=== PATIENT | female | born 1935 | race Caucasian/White ===

== ENCOUNTER 2020-03-23 16:43 | Inpatient (IN) | payer OTHER, MEDICAID, SELFPAY ==
[~2020-03-23] VITALS: Ht 170.2 cm; Wt 88.9 kg
[~2020-03-23 16:43] MED LIST: ALENDRONATE SOD70 M2 PO; ATORVASTATIN CA40 M1 PO; BREO ELLIPTA1 PO1 IH; CLOPIDOGREL75 M1 PO; COZAAR50 MG PO; CYMBALTA60 M1 PO; METOPROLOL SUCC50 M2 PO; MONTELUKAST SOD10 M1 PO; NEU300 PO; NOR10T PO; NORTRIPTYLINE PO; OXYBUTYNIN CHLOR5 MG PO; PHOSLO667 MG PO; PROVENTIL0.09 MG/A1 INH; VITAMIN C250 MG PO; VITAMIN D32000 I2 PO
[2020-03-23 22:45] LABS: BASOPHIL % 0.1 % (0.2-1.3)
[2020-03-23 22:48] LABS: PLATELET COUNT 129 x10^3mcL (179-408); RED CELL DISTRIBUTION WIDTH 16.4 % (12.3-17.7)
[2020-03-23 23:01] LABS: T3 TOTAL 0.89 ng/mL
[2020-03-23 23:05] LABS: FREE THYROXINE INDEX 3.5 ug/dL (1.4-4.5); T4(THYROXINE) 8.9 ug/dL (4.7-13.3)
[2020-03-23 23:45] LABS: ALKALINE PHOSPHATASE 62 U/L (46-116); ALT/SGPT 21 U/L (14-59); AST/SGOT 27 U/L (15-37); BILIRUBIN TOTAL 0.86 mg/dL (0.20-1.00); CALCIUM 8.4 mg/dL (8.5-10.1); CARBON DIOXIDE 24.6 mmol/L (21-32); CHLORIDE SERUM 93 mmol/L (98-107); CREATININE SERUM 1.2 mg/dL (0.6-1.0); GLUCOSE SERUM 107 mg/dL (74-106); LACTIC DEHYDROGENASE (LDH) 270 U/L (100-190); POTASSIUM SERUM 5.5 mmol/L (3.5-5.1); TOTAL PROTEIN, SERUM 6.7 g/dL (6.4-8.2)
[2020-03-23 23:46] LABS: ALBUMIN 2.7 g/dL (3.4-5.0); C REACTIVE PROTEIN 18.6 mg/dL (<=0.9)
[2020-03-23 23:51] LABS: SODIUM SERUM 122 mmol/L (136-145)
[2020-03-23 23:52] LABS: FREE T4 0.8 ng/dL (0.76-1.46)
[2020-03-23] MEDS ORDERED: ELIQUIS5 MG PO (23:59)
[2020-03-24 07:18] LABS: CALCIUM 8.3 mg/dL (8.5-10.1); CARBON DIOXIDE 23.3 mmol/L (21-32); CHLORIDE SERUM 95 mmol/L (98-107); GLUCOSE SERUM 97 mg/dL (74-106); SODIUM SERUM 130 mmol/L (136-145)
[2020-03-24 07:43] VITALS: BP 132/58
[2020-03-24 07:56] LABS: BASOPHIL % 0.1 % (0.2-1.3)
[2020-03-24 08:08] LABS: PLATELET COUNT 123 x10^3mcL (179-408); RED CELL DISTRIBUTION WIDTH 15.6 % (12.3-17.7)
[2020-03-24 21:50] VITALS: BP 134/38
[2020-03-25 06:37] VITALS: BP 131/53
[2020-03-25 08:31] LABS: ALKALINE PHOSPHATASE 62 U/L (46-116); ALT/SGPT 25 U/L (14-59); AST/SGOT 36 U/L (15-37); BILIRUBIN TOTAL 1.22 mg/dL (0.20-1.00); CALCIUM 8.8 mg/dL (8.5-10.1); CARBON DIOXIDE 28.9 mmol/L (21-32); CHLORIDE SERUM 99 mmol/L (98-107); CREATININE SERUM 0.9 mg/dL (0.6-1.0); GLUCOSE SERUM 87 mg/dL (74-106); POTASSIUM SERUM 4.8 mmol/L (3.5-5.1); SODIUM SERUM 133 mmol/L (136-145); TOTAL PROTEIN, SERUM 6.5 g/dL (6.4-8.2)
[2020-03-25 08:57] LABS: ALBUMIN 2.4 g/dL (3.4-5.0)
[2020-03-25 09:23] VITALS: BP 107/44
[2020-03-25 10:44] LABS: BASOPHIL % 0.2 % (0.2-1.3)
[2020-03-25 11:02] VITALS: BP 150/54
[2020-03-25 12:31] LABS: PLATELET COUNT 126 x10^3mcL (179-408); RED CELL DISTRIBUTION WIDTH 16.2 % (12.3-17.7)
[2020-03-25 16:26] VITALS: BP 131/57
[2020-03-25 20:52] VITALS: BP 123/48
[2020-03-26 06:13] VITALS: BP 142/48
[2020-03-26 06:57] LABS: BASOPHIL % 0.2 % (0.2-1.3); PLATELET COUNT 140 x10^3mcL (179-408)
[2020-03-26 07:38] LABS: RED CELL DISTRIBUTION WIDTH 16.1 % (12.3-17.7)
[2020-03-26 07:47] LABS: ALKALINE PHOSPHATASE 59 U/L (46-116); ALT/SGPT 29 U/L (14-59); AST/SGOT 48 U/L (15-37); BILIRUBIN TOTAL 0.86 mg/dL (0.20-1.00); CALCIUM 8.5 mg/dL (8.5-10.1); CARBON DIOXIDE 24.4 mmol/L (21-32); CHLORIDE SERUM 99 mmol/L (98-107); GLUCOSE SERUM 86 mg/dL (74-106); SODIUM SERUM 131 mmol/L (136-145); TOTAL PROTEIN, SERUM 6.3 g/dL (6.4-8.2)
[2020-03-26 07:49] LABS: ALBUMIN 2.3 g/dL (3.4-5.0)
[2020-03-26 09:23] VITALS: BP 93/45
[2020-03-26 12:55] VITALS: BP 102/46
[2020-03-26 16:36] VITALS: BP 128/53
[2020-03-26 21:12] VITALS: BP 142/50
[2020-03-27 06:24] VITALS: BP 148/59
[2020-03-27 07:44] VITALS: BP 143/57
[2020-03-27 07:47] LABS: BASOPHIL % 0.2 % (0.2-1.3); PLATELET COUNT 163 x10^3mcL (179-408)
[2020-03-27 08:15] LABS: ALKALINE PHOSPHATASE 55 U/L (46-116); ALT/SGPT 33 U/L (14-59); AST/SGOT 37 U/L (15-37); BILIRUBIN TOTAL 0.77 mg/dL (0.20-1.00); CALCIUM 8.7 mg/dL (8.5-10.1); CARBON DIOXIDE 26.1 mmol/L (21-32); CHLORIDE SERUM 100 mmol/L (98-107); CREATININE SERUM 0.9 mg/dL (0.6-1.0); GLUCOSE SERUM 88 mg/dL (74-106); POTASSIUM SERUM 4.4 mmol/L (3.5-5.1); SODIUM SERUM 132 mmol/L (136-145); TOTAL PROTEIN, SERUM 6.3 g/dL (6.4-8.2)
[2020-03-27 08:17] LABS: ALBUMIN 2.2 g/dL (3.4-5.0)
[2020-03-27 08:21] LABS: RED CELL DISTRIBUTION WIDTH 15.9 % (12.3-17.7)
[2020-03-27 12:30] VITALS: BP 136/53
[2020-03-27 17:02] VITALS: BP 140/72
[2020-03-27 21:49] VITALS: BP 119/48
[2020-03-28 01:46] VITALS: Ht 170.2 cm; Wt 88.9 kg
[2020-03-28 05:46] VITALS: BP 120/56
[2020-03-28 07:39] LABS: BASOPHIL % 0.3 % (0.2-1.3); PLATELET COUNT 183 x10^3mcL (179-408)
[2020-03-28 08:08] LABS: ALKALINE PHOSPHATASE 56 U/L (46-116); ALT/SGPT 34 U/L (14-59); AST/SGOT 34 U/L (15-37); BILIRUBIN TOTAL 0.8 mg/dL (0.20-1.00); CARBON DIOXIDE 29.1 mmol/L (21-32); CHLORIDE SERUM 99 mmol/L (98-107); CREATININE SERUM 0.8 mg/dL (0.6-1.0); GLUCOSE SERUM 94 mg/dL (74-106); POTASSIUM SERUM 4.9 mmol/L (3.5-5.1); SODIUM SERUM 132 mmol/L (136-145)
[2020-03-28 08:31] LABS: ALBUMIN 2.2 g/dL (3.4-5.0)
[2020-03-28 08:56] LABS: RED CELL DISTRIBUTION WIDTH 15.4 % (12.3-17.7)
[2020-03-28 09:00] VITALS: BP 136/52
[2020-03-28 12:36] VITALS: BP 112/52
[2020-03-28 16:58] VITALS: BP 128/71
[2020-03-28 20:31] VITALS: BP 125/52
[2020-03-28 20:50] LABS: BASOPHIL % 0.2 % (0.2-1.3); PLATELET COUNT 197 x10^3mcL (179-408)
[2020-03-28 20:59] LABS: RED CELL DISTRIBUTION WIDTH 15.7 % (12.3-17.7)
[2020-03-28 21:08] LABS: CALCIUM 8.8 mg/dL (8.5-10.1); CHLORIDE SERUM 98 mmol/L (98-107); CREATININE SERUM 0.8 mg/dL (0.6-1.0); GLUCOSE SERUM 102 mg/dL (74-106); POTASSIUM SERUM 5.1 mmol/L (3.5-5.1); SODIUM SERUM 129 mmol/L (136-145)
[2020-03-29 05:03] VITALS: BP 125/68
[2020-03-29 07:58] LABS: BASOPHIL % 0.3 % (0.2-1.3); PLATELET COUNT 235 x10^3mcL (179-408)
[2020-03-29 08:04] LABS: RED CELL DISTRIBUTION WIDTH 15.6 % (12.3-17.7)
[2020-03-29 09:12] LABS: ALKALINE PHOSPHATASE 58 U/L (46-116); ALT/SGPT 31 U/L (14-59); AST/SGOT 29 U/L (15-37); BILIRUBIN TOTAL 1.07 mg/dL (0.20-1.00); CALCIUM 9.1 mg/dL (8.5-10.1); CHLORIDE SERUM 99 mmol/L (98-107); CREATININE SERUM 0.7 mg/dL (0.6-1.0); GLUCOSE SERUM 90 mg/dL (74-106); POTASSIUM SERUM 5.1 mmol/L (3.5-5.1); SODIUM SERUM 133 mmol/L (136-145); TOTAL PROTEIN, SERUM 6.3 g/dL (6.4-8.2)
[2020-03-29 09:32] VITALS: BP 130/60
[2020-03-29 09:32] LABS: ALBUMIN 2.2 g/dL (3.4-5.0)
[2020-03-29 13:13] VITALS: BP 123/50
[2020-03-29 17:35] VITALS: BP 139/67
[2020-03-29 20:31] VITALS: BP 124/67
[2020-03-30 00:09] LABS: UA SPECIFIC GRAVITY >=1.030 (1.005-1.035); microscopic required? YES; urine erythrocyte 3+ (NEGATIVE)
[2020-03-30 05:22] VITALS: BP 132/48
[2020-03-30 08:44] VITALS: BP 90/66
[2020-03-30 12:25] VITALS: BP 132/54
[2020-03-30 17:30] VITALS: BP 135/47
[2020-03-30 20:55] VITALS: BP 128/64
[2020-03-31 06:03] VITALS: BP 114/63
[2020-03-31 08:11] LABS: CARBON DIOXIDE 28.4 mmol/L (21-32); CHLORIDE SERUM 99 mmol/L (98-107); GLUCOSE SERUM 95 mg/dL (74-106); SODIUM SERUM 132 mmol/L (136-145)
[2020-03-31 09:07] VITALS: BP 151/58
[2020-03-31 09:19] LABS: POTASSIUM SERUM 5.6 mmol/L (3.5-5.1)
[2020-03-31 12:30] VITALS: BP 123/44
[2020-03-31 14:18] LABS: BASOPHIL % 0.7 % (0.2-1.3); PLATELET COUNT 370 x10^3mcL (179-408)
[2020-03-31 14:36] LABS: RED CELL DISTRIBUTION WIDTH 15.7 % (12.3-17.7)
[2020-03-31 16:01] VITALS: BP 104/30
[2020-03-31 19:00] VITALS: BP 116/44
[2020-04-01 00:45] VITALS: BP 108/39
[2020-04-01 05:13] VITALS: BP 153/49
[2020-04-01 09:00] VITALS: BP 109/67
[2020-04-01 13:04] VITALS: BP 103/78
[2020-04-01 15:28] LABS: CALCIUM 8.8 mg/dL (8.5-10.1); CARBON DIOXIDE 24.8 mmol/L (21-32); CHLORIDE SERUM 99 mmol/L (98-107); CREATININE SERUM 1.1 mg/dL (0.6-1.0); GLUCOSE SERUM 101 mg/dL (74-106); POTASSIUM SERUM 5.2 mmol/L (3.5-5.1); SODIUM SERUM 133 mmol/L (136-145)
[2020-04-01 17:43] VITALS: BP 123/62
[2020-04-01 19:24] LABS: BASOPHIL % 0.2 % (0.2-1.3); PLATELET COUNT 302 x10^3mcL (179-408)
[2020-04-01 19:26] LABS: RED CELL DISTRIBUTION WIDTH 16.3 % (12.3-17.7)
[2020-04-01 20:50] LABS: APPEARANCE FLUID HAZY; COLOR FLUID YELLOW; SOURCE FLUID THORACENTESIS
[2020-04-01 20:51] LABS: RBC FLUID 6594 /cumm; WBC FLUID 9 /cumm
[2020-04-01 22:34] VITALS: BP 112/67
[2020-04-02] VITALS (7 sets, daily range): BP systolic 112–143; BP diastolic 39–74
[2020-04-03 06:03] VITALS: BP 124/43
[2020-04-03 07:56] LABS: BASOPHIL % 0.4 % (0.2-1.3); PLATELET COUNT 321 x10^3mcL (179-408)
[2020-04-03 08:32] LABS: CALCIUM 8.9 mg/dL (8.5-10.1); CARBON DIOXIDE 27.9 mmol/L (21-32); CHLORIDE SERUM 102 mmol/L (98-107); CREATININE SERUM 1.6 mg/dL (0.6-1.0); GLUCOSE SERUM 82 mg/dL (74-106); SODIUM SERUM 136 mmol/L (136-145)
[2020-04-03 09:44] LABS: POTASSIUM SERUM 6.2 mmol/L (3.5-5.1)
[2020-04-03 09:50] LABS: RED CELL DISTRIBUTION WIDTH 15.7 % (12.3-17.7)
[2020-04-03 09:58] VITALS: BP 129/43
[2020-04-03 12:56] VITALS: BP 95/55
[2020-04-03 18:03] VITALS: BP 103/52
[2020-04-03 21:12] VITALS: BP 101/26
[2020-04-04 05:36] VITALS: BP 124/38
[2020-04-04 05:39] VITALS: BP 124/38
[2020-04-04 07:18] LABS: BASOPHIL % 0.2 % (0.2-1.3); PLATELET COUNT 377 x10^3mcL (179-408)
[2020-04-04 07:27] LABS: RED CELL DISTRIBUTION WIDTH 15.8 % (12.3-17.7)
[2020-04-04 07:52] LABS: CALCIUM 8.6 mg/dL (8.5-10.1); CARBON DIOXIDE 29.4 mmol/L (21-32); CHLORIDE SERUM 97 mmol/L (98-107); CREATININE SERUM 2.8 mg/dL (0.6-1.0); GLUCOSE SERUM 197 mg/dL (74-106); SODIUM SERUM 130 mmol/L (136-145)
[2020-04-04 08:05] LABS: POTASSIUM SERUM 7.2 mmol/L (3.5-5.1)
[2020-04-04 09:35] VITALS: BP 105/48
[2020-04-04 12:54] VITALS: BP 117/42
[2020-04-04 16:53] LABS: CALCIUM 7.5 mg/dL (8.5-10.1); CARBON DIOXIDE 26.2 mmol/L (21-32); CHLORIDE SERUM 104 mmol/L (98-107); CREATININE SERUM 2.9 mg/dL (0.6-1.0); SODIUM SERUM 136 mmol/L (136-145)
[2020-04-04 17:02] LABS: GLUCOSE SERUM 92 mg/dL (74-106)
[2020-04-04 17:17] VITALS: BP 106/36
[2020-04-04 21:25] VITALS: BP 111/37
[2020-04-04 21:29] LABS: CALCIUM 8.4 mg/dL (8.5-10.1); CARBON DIOXIDE 27.8 mmol/L (21-32); CHLORIDE SERUM 101 mmol/L (98-107); CREATININE SERUM 3.6 mg/dL (0.6-1.0); GLUCOSE SERUM 111 mg/dL (74-106); SODIUM SERUM 134 mmol/L (136-145)
[2020-04-05 06:01] VITALS: BP 115/36
[2020-04-05 09:05] LABS: BASOPHIL % 1.3 % (0.2-1.3)
[2020-04-05 09:07] VITALS: BP 119/46
[2020-04-05 10:02] LABS: CALCIUM 8.6 mg/dL (8.5-10.1); CARBON DIOXIDE 26.3 mmol/L (21-32); CHLORIDE SERUM 100 mmol/L (98-107); CREATININE SERUM 3.8 mg/dL (0.6-1.0); GLUCOSE SERUM 101 mg/dL (74-106); SODIUM SERUM 136 mmol/L (136-145)
[2020-04-05 10:05] LABS: POTASSIUM SERUM 6.3 mmol/L (3.5-5.1)
[2020-04-05 11:29] LABS: PLATELET COUNT 448 x10^3mcL (179-408); RED CELL DISTRIBUTION WIDTH 16.2 % (12.3-17.7)
[2020-04-05 13:15] LABS: CALCIUM 8.1 mg/dL (8.5-10.1); CARBON DIOXIDE 25.8 mmol/L (21-32); CHLORIDE SERUM 103 mmol/L (98-107); CREATININE SERUM 3.8 mg/dL (0.6-1.0); GLUCOSE SERUM 93 mg/dL (74-106); SODIUM SERUM 137 mmol/L (136-145)
[2020-04-05 13:23] LABS: POTASSIUM SERUM 5.8 mmol/L (3.5-5.1)
[2020-04-05 13:48] VITALS: BP 127/35
[2020-04-05 16:42] VITALS: BP 93/50
[2020-04-05 21:23] VITALS: BP 147/45
[2020-04-06 05:47] VITALS: BP 127/44
[2020-04-06 08:30] VITALS: BP 141/39
[2020-04-06 13:37] VITALS: BP 145/70
[2020-04-06 18:22] VITALS: BP 118/46
[2020-04-06 20:21] VITALS: BP 119/40
[2020-04-07 05:17] VITALS: BP 94/28
== END 2020-04-07 05:45 | DRG 177 ==
LOC: ED 16:43 → DU 20:19
PROVIDERS: Family Medicine; Internal Medicine; Internal Medicine Nephrology; Specialist; ADMIT Internal Medicine; ATTEND Internal Medicine
PROC: 0W9B3ZZ Drainage of Left Pleural Cavity, Percutaneous Approach (ICD-10-PCS; 2020-03-31)
PROC: 02HV33Z Insertion of Infusion Device into Superior Vena Cava, Percutaneous Approach (ICD-10-PCS; principal; 2020-04-04)
PROC: B548ZZA Ultrasonography of Superior Vena Cava, Guidance (ICD-10-PCS; 2020-04-04)
PROC: 5A09457 Assistance with Respiratory Ventilation, 24-96 Consecutive Hours, Continuous Positive Airway Pressure (ICD-10-PCS; 2020-04-04)
DX: U07.1 COVID-19 (principal); N17.0 Acute kidney failure with tubular necrosis; J12.82 Pneumonia due to coronavirus disease 2019; J96.01 Acute respiratory failure with hypoxia; E87.1 Hypo-osmolality and hyponatremia; E44.0 Moderate protein-calorie malnutrition; R65.10 Systemic inflammatory response syndrome (SIRS) of non-infectious origin without acute organ dysfunction; J44.0 Chronic obstructive pulmonary disease with (acute) lower respiratory infection; I48.20 Chronic atrial fibrillation, unspecified; I10 Essential (primary) hypertension; F31.9 Bipolar disorder, unspecified; E78.00 Pure hypercholesterolemia, unspecified; I73.9 Peripheral vascular disease, unspecified; Z66 Do not resuscitate; Z51.5 Encounter for palliative care; M19.90 Unspecified osteoarthritis, unspecified site; E87.5 Hyperkalemia; E86.0 Dehydration; Z78.1 Physical restraint status; Z79.01 Long term (current) use of anticoagulants; Z90.710 Acquired absence of both cervix and uterus; Z90.49 Acquired absence of other specified parts of digestive tract; Z87.891 Personal history of nicotine dependence; Z68.29 Body mass index [BMI] 29.0-29.9, adult; Z79.899 Other long term (current) drug therapy; M94.0 Chondrocostal junction syndrome [Tietze]
CPT/HCPCS: 32555; 36600; 82962; 83880; 84439; 85378; 87804; 97110-GP; 97112-GP; 97116-GP; 97530-GP; C1729; C9113; G0378; J0456; J0610; J0696; J1940; J2001; J2270; J3490; J3535; J7030; J7050; J7060; U0003